=== PATIENT | male | born 1960 | race Caucasian/White ===

== ENCOUNTER 2023-11-22 05:10 | Day surgery (SDC) | payer MEDICARE, MEDICAID ==
[~2023-11-22] VITALS: Ht 175.3 cm; Wt 108.9 kg
[2023-11-22] MEDS ORDERED: CELECOXIB 100 MG CAPSULE ONE (05:26)
[2023-11-22] MEDS ORDERED: GABAPENTIN 300 MG CAPSULE ONE (05:27)
[2023-11-22] MEDS ORDERED: oxyCODONE HCL 10 MG TAB.ER.12H PO ONE ×2 (05:28→07:00)
[2023-11-22] MEDS ORDERED: SCOPOLAMINE HYDROBROMIDE 1 MG PATCH .72 H (TRANSDERM-SCOP) TD ONE ×2 (05:28→07:00)
[2023-11-22] MEDS: ACETAMINOPHEN 500 MG TABLET ONE (05:40)
[2023-11-22 05:59] VITALS: BP_SYST 131; PULSE 75; RESP 16; TEMP 98.3; O2SAT 98
[2023-11-22] MEDS ORDERED: CEFAZOLIN SOD 2 GM in D5W 50 ML IV ONE (07:00)
[2023-11-22] MEDS ORDERED: GABAPENTIN 300 MG CAPSULE PO ONE (07:00)
[2023-11-22] MEDS ORDERED: ACETAMINOPHEN 500 MG TABLET PO ONE (07:00)
[2023-11-22] MEDS ORDERED: CELECOXIB 100 MG CAPSULE PO ONE (07:00)
== END 2023-11-22 05:50 | disposition home or self-care (01) ==
LOC: SDS 05:10
PROVIDERS: ATTEND Student in an Organized Health Care Education/Training Program
DX: M16.11 Unilateral primary osteoarthritis, right hip (principal); Z53.8 Procedure and treatment not carried out for other reasons; I10 Essential (primary) hypertension; G47.33 Obstructive sleep apnea (adult) (pediatric); M10.9 Gout, unspecified; Z87.891 Personal history of nicotine dependence; Z79.899 Other long term (current) drug therapy
CPT/HCPCS: 87081; J0690; J7060